=== PATIENT | male | born 1935 | race Caucasian/White ===

== ENCOUNTER → 2016-05-07 | Outpatient (CLI) | payer OTHER ==
[~2016-05-07] MED LIST: ADVAIR 250-501 EACH INH; ADVAIR HFA115 MCG/21 INH; ALLOPURINOL 10100 M1 PO; ASPIRIN EC81 M1; BENICAR20 MG PO; COREG CR20 MG PO; COZAAR 25 MG TA25 M2 PO; COZAAR 50 MG TA50 M2 PO; DEMADEX20 MG PO; ECOTRIN325 MG PO; FLONASE 0.05%50 MCG NASAL; FUROSEMIDE 40 M40 MG PO; IRON325 PO; KLOR-CON 1010 MEQ PO; PACERONE 200 M200 M1 PO; PERSER VISION; PRAVACHOL40 MG PO; PRESERVISION T1 EACH PO; PROAIR HFA8.5 GM INH; PROBIOTIC1 EAC1 PO; PROTONIX40 M1 PO; SINGULAIR 10 MG10 M1 PO; SLOW-MAG64 MG PO; VERAMYST10 GM INH; VITAMIN D1000 UNI1 PO
== END ==
LOC: RAD 02:43
DX: R94.5 Abnormal results of liver function studies (principal)

== ENCOUNTER → 2016-11-30 | Outpatient (CLI) | payer OTHER ==
[2016-11-30 12:29] LABS: HEMATOCRIT 38.7 % (42.0-52.0); HEMOGLOBIN 12.6 gm/dL (14.0-18.0); MCH 32.2 pg (26.0-34.0); MCHC 32.6 g/dL (28.0-37.0); MCV 98.7 fL (80.0-100.0); RBC 3.92 mil/uL (4.50-6.00); RDW 15.7 % (10.5-14.5); WBC 9.1 thou/uL (4.0-11.0)
[2016-11-30 12:31] LABS: CREATININE 2.1 mg/dL (0.7-1.3); POTASSIUM 4.8 mmol/L (3.5-5.1)
[2016-11-30 12:37] LABS: TOTAL BILIRUBIN 0.7 mg/dL (<0.1-1.0); TOTAL PROTEIN 6.8 g/dL (6.4-8.2)
[2016-12-01 02:08] LABS: GLYCOHEMOGLOBIN (HGB A1C) 5.3 % (4.8-5.6)
== END ==
LOC: RAD 11:55 → LABMALL 11:55
PROVIDERS: Neuromusculoskeletal Medicine & OMM
DX: E11.9 Type 2 diabetes mellitus without complications (principal); R06.02 Shortness of breath; R05 Cough

== ENCOUNTER → 2017-01-12 | Outpatient (CLI) | payer OTHER | LOC: CAT 10:36 | DX: H92.02 Otalgia, left ear (principal); R51 Headache ==

== ENCOUNTER → 2017-02-03 | Outpatient (CLI) | payer OTHER ==
[~2017-02-03] MED LIST changes: +COZAAR 25 MG TA25 MG PO; +FIBER THERAPY500 MG PO; +LIVALO2 MG PO; +NORCO 5-325 TA1 EACH PO
--- NOTE | ~2017-02-03 | P ---
[facility] [place] [address] PROCEDURE REPORT Name: HOUSTON HERNANDEZ Room #: REG [facility].#: [id number] Admission: 02/03/17 Attend Phys: Lam Morris MD Discharge: Date of : 33 Report #: [id number] THIS REPORT FOR: //name// CC: Jj Teixeira PROCEDURE PERFORMED: ICD generator exchange, CPT code 13090. HISTORY OF PRESENT ILLNESS: The patient is an 81-year-old with history of ischemic cardiomyopathy and VT, status post Medtronic ICD implantation, whose device is CHRIS and he is here for generator exchange. ANESTHESIA: The patient underwent MAC anesthesia with no anesthesia related complications. PROCEDURE: The patient underwent informed consent where we discussed the details of the procedure including the risks, which include, but not limited to bleeding, infection, vascular damage and need for possible lead revision. He understood these risks and is willing to proceed. As such, he was brought to the EP laboratory in a fasting and sedated state and received IV antibiotics prior to initiation of the procedure. I then injected lidocaine below the level of the prior incision and an incision was made. The chronic pocket was opened. The device was disconnected and the new device was connected to the leads. Tug tests were performed and the device was interrogated and found to be functioning normally. The patient does have a lateral pocket, which has been chronic and the device sits near his axilla. I did suture the header down to hopefully prevent lateral migration. The pocket was irrigated with vancomycin and then the pocket was closed in 3 layers using 2-0 for the deep layer, 3-0 for the middle layer and 4-0 for the subcuticular layer with surgical glue placed in the outer skin layer. The patient awoke neurologically and hemodynamically intact. No complications and no significant bleeding. The explanted device was Medtronic device, model #R505NXK, serial #[id number]. The newly implanted device was a [employer] model #[id number], serial #[id number]. The atrial lead was a Medtronic model #4568, serial #[id number]. This lead demonstrated P-wave 1 millivolt, pacing impedance of 350 ohms and the pacing threshold of 1.25 volts at 0.5 milliseconds. The RV lead was a Medtronic model #6944, serial #[id number]. This lead demonstrated R-wave greater than 12 millivolts, pacing impedance of 450 ohms, and pacing threshold 1.25 volts at 0.5 milliseconds. The device is programmed to the DDDR 60-120 mode with a VT1 zone set at 120, VT2 zone set at 150 and VF zone of 150. The VT1 zone is a monitor zone. The VT 2 zone had ATP times 8 followed by max output shocks. The VF zone had ATP while charging followed by max output shocks. CONCLUSIONS: [facility] [address] [place] [address] PROCEDURE REPORT Name: HERNANDEZHOUSTON TANVIR Room #: REG [facility]#: [id number] Admission: 02/03/17 Attend Phys: Lam Morris MD Discharge: Date of : 33 Report #: [id number] 1. Successful ICD generator exchange. 2. Satisfactory atrial and right ventricular pacing and sensing thresholds. By: 0942 1105 Lam Morris MD /nt
[2017-02-03 07:33] LABS: ABSOLUTE NEUTROPHILS 5.2 thou/uL (1.4-8.2); BASOPHILS 0.9 % (0.0-2.0); EOSINOPHILS 5.3 % (0.0-3.0); HEMATOCRIT 38.6 % (42.0-52.0); HEMOGLOBIN 12.5 gm/dL (14.0-18.0); MCH 32.2 pg (26.0-34.0); MCHC 32.5 g/dL (28.0-37.0); MCV 99.1 fL (80.0-100.0); MONOCYTES 6.4 % (1.0-8.0); PLATELET COUNT 159 thou/uL (150-400); POLYS 65.4 % (36.0-66.0); RBC 3.89 mil/uL (4.50-6.00); RDW 15.7 % (10.5-14.5); WBC 7.9 thou/uL (4.0-11.0)
[2017-02-03 07:34] LABS: MANUAL DIFF NO
[2017-02-03 07:39] LABS: CREATININE 2.4 mg/dL (0.7-1.3); POTASSIUM 4.2 mmol/L (3.5-5.1)
[2017-02-03 07:45] LABS: ALBUMIN 2.8 g/dL (3.4-5.0); TOTAL BILIRUBIN 0.7 mg/dL (<0.1-1.0); TOTAL PROTEIN 6.4 g/dL (6.4-8.2)
[2017-02-03 07:55] LABS: APTT 26.1 Seconds (24.5-32.8); INR 1.1; PROTIME 11.2 Seconds (9.3-11.4)
== END | disposition home or self-care (01) ==
LOC: CATH 06:32
PROVIDERS: Internal Medicine Cardiovascular Disease
DX: I25.5 Ischemic cardiomyopathy (principal); R00.0 Tachycardia, unspecified; M19.90 Unspecified osteoarthritis, unspecified site; E11.9 Type 2 diabetes mellitus without complications; I73.9 Peripheral vascular disease, unspecified; E78.5 Hyperlipidemia, unspecified; I42.9 Cardiomyopathy, unspecified; I21.3 ST elevation (STEMI) myocardial infarction of unspecified site; E66.9 Obesity, unspecified; Z87.891 Personal history of nicotine dependence; Z95.1 Presence of aortocoronary bypass graft
CPT/HCPCS: 62110; 62900; 70005

== ENCOUNTER 2017-03-24 17:08 | Inpatient (IN) | payer OTHER ==
[~2017-03-24] VITALS: Ht 175.3 cm; Wt 96.6 kg
--- NOTE | ~2017-03-24 | HC ---
[facility] [address] [place] [address] CONSULTATION Name: HOUSTON HERNANDEZ Room #: 214-P [facility] IN M.R.#: [id number] Admission: 03/24/17 Attend Phys: Jj Jacobson MD, Discharge: 03/26/17 Date of : 33 Report #: [id number] THIS REPORT FOR: //name// CC: Jj Teixeira DATE OF SERVICE: 03/25/2017 HISTORY OF PRESENT ILLNESS: The patient is an 81-year-old white male who was admitted with acute on chronic congestive heart failure, noted to have moderate pleural effusion and moderate to severe mitral regurgitation. He has lateral hypokinesis. He also has nasia-xi-oukcecs renal insufficiency with worsening creatinine. He has ischemic cardiomyopathy. He is being treated with IV Lasix. Cardiology is closely involved. He has medical complexity with generalized debilitation. We are seeing him in rehabilitation medicine consultation. PAST MEDICAL HISTORY: Includes mitral valve repair, hypertension, V-tach. He had a prior implantable cardiac defibrillator. He has history of hypercholesterolemia and hypertension. MEDICATIONS: Please see the full medication listing. SOCIAL HISTORY: House, this is a care home situation where he lives with his . There are no steps. He premorbidly used a cane or often a walker. His drives. There is an involved daughter and niece. REVIEW OF SYSTEMS: Did not offer any current complaints of chest pain, shortness of breath or abdominal discomfort. No focal extremity pain complaints. PHYSICAL EXAMINATION: GENERAL: An 81-year-old white male in no obvious distress. The patient is alert. He is oriented, somewhat verbose, but very pleasant, cooperative. VITAL SIGNS: Last recorded temperature 97.7, pulse 61, respirations 19, blood pressure 93/51. HEENT: Benign. NEUROLOGIC: Facies are symmetric. Functional range of motion of both upper extremities with strength grade 4 to 4-/5. DTRs are trace to 1. Lower extremities, no focal calf swelling, functional range of motion with strength grade 4-/5. DTRs are trace to 1. Tone appeared to be intact. ASSESSMENT: An 81-year-old white male with the following problem list: 1. Medical complex with generalized debilitation. 2. Acute on chronic congestive heart failure. 3. Ischemic cardiomyopathy. 4. Acute renal insufficiency superimposed on chronic kidney disease. [address] [address] CONSULTATION Name: HOUSTON HERNANDEZ Room #: 214-P [facility] IN M.R.#: [id number] Admission: 03/24/17 Attend Phys: Jj Jacobson MD, Discharge: 03/26/17 Date of : 33 Report #: [id number] 5. Paroxysmal atrial fibrillation. 6. Prior ICD placement. 7. Coronary artery disease with prior coronary artery bypass grafting. 8. History of prior mitral valve repair. 9. History of ventricular tachycardia. 10. Hypertension. 11. Hypercholesterolemia. PLAN: Therapy evaluations are underway. We are considering the patient for a short acute in-hospital inpatient rehabilitation stay. Discussion was held with the patient's and niece. We will be glad to follow along regarding rehab therapy needs, as his evaluations are completed. Thank you for asking us to assist in this patient's care. <ELECTRONICALLY SIGNED> By: Saurav Chatman MD 03/29/17 1219 1308 1421 Saurav Chatman MD /[facility]
--- NOTE | ~2017-03-24 | HC ---
[facility] [place] [address] CONSULTATION Name: HOUSTON HERNANDEZ Room #: 214-P ADM IN M.R.#: [id number] Admission: 03/24/17 Attend Phys: Jj Jacobson MD, Discharge: Date of : 33 Report #: [id number] THIS REPORT FOR: //name// CC: Jj Teixeira DATE OF SERVICE: 03/25/2017 REASON FOR CONSULTATION: Chronic kidney disease. HISTORY OF PRESENT ILLNESS: An 81-year-old gentleman with longstanding ischemic cardiomyopathy and chronic kidney disease, baseline creatinine running in the mid 2 range in our office, presents with worsening debilitation, weakness, difficulty getting around, difficulty with his walking. PAST MEDICAL HISTORY: Coronary artery bypass in 2001, longstanding decreased left ventricular ejection fraction, previous ejection fractions as low as 30-35%, apparently up to 40-45% more recently. He is chronic diuretic dependent, is also on an ARB, previous ventricular tachycardia with implantable cardioverter-defibrillator placement. Also with prior hip replacements, cholecystectomy and a previous Staph aureus infection. SOCIAL HISTORY: He is a longtime heavy smoker, but recently quit a couple of years ago. FAMILY HISTORY: No renal disease. REVIEW OF SYSTEMS: GENERAL: He is weak and tired. EYES: His vision is okay. ENT: Hearing okay. Denies mouth sores. ENDOCRINE: Positive for the diabetes. RESPIRATORY: Not really short winded per se, just gets tired with exertion. CARDIAC: No chest pain. He has some swelling of his legs. GASTROINTESTINAL: Appetite fair. No bloody stool. GENITOURINARY: A little bit of a weak stream. NEUROLOGIC: Denies seizure, syncope or stroke, just generalized weakness. PSYCHIATRIC: Seems a little depressed. PHYSICAL EXAMINATION: VITAL SIGNS: This is an elderly, weak, thin appearing gentleman, in no acute distress. SKIN: Unremarkable. SKELETAL: Well-developed, well-nourished, a little bit obese. HEENT: Extraocular movements are full. Vision intact. No scleral icterus. Hearing intact. Mucous membranes moist. Tongue, buccal mucosa benign. [facility] [address] [place] [address] CONSULTATION Name: HOUSTON HERNANDEZ Room #: 214-P ADM IN M.R.#: [id number] Admission: 03/24/17 Attend Phys: Jj Jacobson MD, Discharge: Date of : 33 Report #: [id number] NECK: Supple, no carotid bruits. CHEST: Shows diminished breath sounds at the bases. HEART: Distant, but regular. ABDOMEN: Soft and nontender. EXTREMITIES: Show trace ankle edema. LABORATORY DATA: Urinalysis not done. Hemoglobin 13. Sodium 143, potassium 4, chloride 111, bicarbonate 24, creatinine 3, BUN 57. HOME MEDICATIONS: Allopurinol 200 mg daily, amiodarone 300 mg daily, aspirin 325 mg daily, carvedilol 3.125 mg b.i.d., vitamin D, iron, Flonase, Advair, losartan 12.5 mg daily, magnesium, Singulair, Protonix 40 mg daily, Livalo 2 mg daily, potassium 10 mEq b.i.d., torsemide 50 mg daily. ASSESSMENT: 1. Acute on chronic kidney disease. He appears to have chronic kidney disease. He has longstanding diabetes. I will check proteinuria and paraprotein studies for completeness, renal sonography for completeness as well. Certainly some of his renal insufficiency is due to poor cardiac performance, although his ejection fraction is not as bad as I would have thought. We can edna with his medicines, but probably will not be able to do too much for this gentleman. 2. Congestive heart failure. 3. Diabetes mellitus. 4. Chronic obstructive pulmonary disease, history of heavy smoking. 5. Previous coronary artery bypass. 6. History of ventricular tachycardia with automatic implantable cardioverter-defibrillator. <ELECTRONICALLY SIGNED> By: Jj Andre MD 03/26/17 1044 0834 1336 Jj Andre MD /nt
[2017-03-24 18:31] LABS: HEMATOCRIT 39.5 % (42.0-52.0); MCH 33.1 pg (26.0-34.0); MCHC 32.9 g/dL (28.0-37.0); MCV 100.5 fL (80.0-100.0); RBC 3.93 mil/uL (4.50-6.00); RDW 16.2 % (10.5-14.5)
[2017-03-24 18:43] LABS: INR 1.1; PROTIME 11.4 Seconds (9.3-11.4)
[2017-03-24 18:48] LABS: ALBUMIN 2.5 g/dL (3.4-5.0); CALCIUM 8.8 mg/dL (8.5-10.1); CREATININE 3.1 mg/dL (0.7-1.3); POTASSIUM 4.7 mmol/L (3.5-5.1); TOTAL BILIRUBIN 0.7 mg/dL (<0.1-1.0)
[2017-03-24 18:56] VITALS: BP 131/70
[2017-03-24 23:51] VITALS: BP 122/64
[2017-03-25 03:54] LABS: CALCIUM 8.2 mg/dL (8.5-10.1); MAGNESIUM 2.3 mg/dL (1.8-2.4)
[2017-03-25 04:00] VITALS: BP 96/55
[2017-03-25 07:47] VITALS: BP 109/52
[2017-03-25 08:43] LABS: ALBUMIN 2.1 g/dL (3.4-5.0); CALCIUM 8.2 mg/dL (8.5-10.1); POTASSIUM 4.1 mmol/L (3.5-5.1)
[2017-03-25 11:08] VITALS: BP 93/51
[2017-03-25 15:20] VITALS: BP 108/58
[2017-03-25 17:35] LABS: URINE BILIRUBIN NEGATIVE (Negative); URINE BLOOD NEGATIVE (Negative); URINE COLOR YELLOW; URINE GLUCOSE-RANDOM* NEGATIVE (Negative); URINE KETONES NEGATIVE (Negative); URINE NITRITE NEGATIVE (Negative); URINE PROTEIN (DIPSTICK) NEGATIVE (Negative); URINE UROBILINOGEN 0.2 E.U./dl (0.2-1.0)
[2017-03-25 17:40] LABS: PROT/CREAT RATIO 0.1; URINE CREATININE-RANDOM* 75.2 mg/dL; URINE PROTEIN-RANDOM* 6.7 mg/dL (<11.9)
[2017-03-25 19:19] VITALS: BP 137/47
[2017-03-26 04:07] VITALS: BP 112/64
[2017-03-26 04:15] LABS: ALBUMIN 1.9 g/dL (3.4-5.0); CALCIUM 8.1 mg/dL (8.5-10.1); CREATININE 2.8 mg/dL (0.7-1.3); PHOSPHORUS 3.7 mg/dL (2.5-4.9); POTASSIUM 3.8 mmol/L (3.5-5.1)
[2017-03-26 07:39] VITALS: BP 115/58
[2017-03-26] MEDS ORDERED: ATORVASTATIN CA40 MG PO (09:33)
[2017-03-26] MEDS ORDERED: ALDACTONE25 MG PO (09:34)
[2017-03-26 11:31] VITALS: BP 104/59
[2017-03-26 12:09] LABS: KAPPA FREE LIGHT CHAINS 107.3 mg/L (3.3-19.4); KAPPA/LAMBDA RATIO 1.25 (0.26-1.65); LAMBDA FREE LIGHT CHAINS 85.6 mg/L (5.7-26.3)
[2017-03-30 08:11] LABS: A/G RATIO 1.1 (0.7-1.7); ALBUMIN 2.5 g/dL (2.9-4.4); ALPHA 1 0.3 g/dL (0.0-0.4); ALPHA 2 0.6 g/dL (0.4-1.0); BETA 0.7 g/dL (0.7-1.3); GAMMA 0.6 g/dL (0.4-1.8); M-SPIKE Not Observed g/dL (Not Observed)
== END 2017-03-26 13:11 | DRG 291 ==
LOC: 2N 17:08
PROVIDERS: Internal Medicine Cardiovascular Disease; Internal Medicine Nephrology; Nurse Practitioner Adult Health; Nurse Practitioner Gerontology
DX: I13.0 Hypertensive heart and chronic kidney disease with heart failure and stage 1 through stage 4 chronic kidney disease, or unspecified chronic kidney disease (principal); I50.23 Acute on chronic systolic (congestive) heart failure; N17.9 Acute kidney failure, unspecified; Z96.649 Presence of unspecified artificial hip joint; N18.9 Chronic kidney disease, unspecified; E11.22 Type 2 diabetes mellitus with diabetic chronic kidney disease; J44.9 Chronic obstructive pulmonary disease, unspecified; E78.00 Pure hypercholesterolemia, unspecified; I25.5 Ischemic cardiomyopathy; I48.0 Paroxysmal atrial fibrillation; I25.10 Atherosclerotic heart disease of native coronary artery without angina pectoris; E11.51 Type 2 diabetes mellitus with diabetic peripheral angiopathy without gangrene; Z90.49 Acquired absence of other specified parts of digestive tract; Z87.891 Personal history of nicotine dependence; Z95.1 Presence of aortocoronary bypass graft; Z95.810 Presence of automatic (implantable) cardiac defibrillator; Z28.21 Immunization not carried out because of patient refusal
CPT/HCPCS: 10797

== ENCOUNTER 2017-03-26 10:22 | Inpatient (IN) | payer OTHER ==
[~2017-03-26] VITALS: Ht 175.3 cm; Wt 92.0 kg
--- NOTE | ~2017-03-26 | EKG ---
[place] [address] [facility] [place] [address] ELECTROCARDIOGRAM REPORT Name: HOUSTON HERNANDEZ Room #: 516-1 ADM IN M.R.#: [id number] Admission: 03/26/17 Attend Phys: Saurav Chatman MD Discharge: Date of : 33 Report #: [id number] THIS REPORT FOR: //name// [facility] Test Date: 2017-04-01 Test Time: 06:33:49 Pat Name: HOUSTON HERNANDEZ Department: Room: 6 Gender: M Jd Edwards: May POWELL : 1935 Requested By: Jj Jacobson Order Number: [id number] MD: Real Abbasi Measurements Intervals [place] Rate: 60 P: AK: 182 QRS: -64 QRSD: 185 T: 70 QT: 481 QTc: 481 Interpretive Statements Atrial-paced rhythm Nonspecific IVCD with LAD Compared to ECG 11/20/2015 19:43:20 No significant changes Electronically Signed On 04-01-2017 8:24:41 SWINGING CUT OFF SAW OPERATOR by Real Abbasi [email or web address] <ELECTRONICALLY SIGNED> By: Real Abbasi MD, [facility] 04/01/17 0824 2 2 Real Abbasi MD, [facility] /EPI
--- NOTE | ~2017-03-26 | PLAN ---
[facility] [place] [address] [place] [address] REHAB UNIT PLAN OF CARE Name: HOUSTON HERNANDEZ Room #: 516-1 ADM IN M.R.#: [id number] Admission: 03/26/17 Attend Phys: Saurav Chatman MD Discharge: Date of : 33 Report #: [id number] THIS REPORT FOR: //name// CC: Saurav Teixeira DATE OF SERVICE: 03/29/2017 The patient is seen back today in followup. He is in no distress. Last recorded temperature 36.4, pulse 60, respirations 20, blood pressure 107/58. No focal calf swelling. He is working in therapies with transfers are contact guard with gait contact guard 200 feet with a front-wheeled walker. In occupational therapy, lower body dressing is contact guard. ASSESSMENT: 1. Medical complexity with generalized debilitation. 2. Acute on chronic congestive heart failure. 3. Ischemic cardiomyopathy. 4. Acute renal insufficiency superimposed on chronic kidney disease. 5. Paroxysmal atrial fibrillation. 6. Prior implantable cardioverter defibrillator placement. 7. Coronary artery disease with prior coronary artery bypass grafting. 8. History of prior mitral valve repair. 9. History of ventricular tachycardia. 10. Hypertension. 11. Hypercholesterolemia. PLAN: The overall plan of care is based on the preadmission screen, post-admission physician evaluation and information garnered from therapy assessments. 1. Estimated length of stay is probably at least the next 5 days or so, only we will need to see how he progresses. 2. Medical prognosis is reasonably good. 3. Anticipated interventions includes the interdisciplinary acute inpatient rehabilitation program with goal of maximizing the patient's functional independence, so that hopefully can return back to his prior living situation. PT and OT will be working with him along with rehab nursing assisting regarding medication management, skin care prophylaxis, bowel and bladder issues and nursing education. We will have the independent beauty consultant physicians continue to follow. 4. Anticipated functional outcomes would be for the patient to become modified independent with transfers, mobility and ADLs, so that he can return back to the home setting. 5. Discharge destination would be back to the home setting where he lives with his in a care home situation. 6. Expected therapy by discipline includes PT and OT 1-1/2 hours per day, [place] [address] REHAB UNIT PLAN OF CARE Name: DAVIDHOUSTON TANVIR Room #: 516-1 [facility]#: [id number] Admission: 03/26/17 Attend Phys: Saurav Chatman MD Discharge: Date of : 33 Report #: [id number] five days a week throughout the duration of the acute inpatient rehabilitation stay. <ELECTRONICALLY SIGNED> By: Saurav Chatman MD 03/29/17 1219 0819 1002 Saurav Chatman MD /PMT
--- NOTE | ~2017-03-26 | H ---
[facility] [address] [place] [address] HISTORY AND PHYSICAL Name: HOUSTON HERNANDEZ Room #: 516-1 ADM IN M.R.#: [id number] Admission: 03/26/17 Attend Phys: Saurav Chatman MD Discharge: Date of : 33 Report #: [id number] THIS REPORT FOR: //name// CC: Saurav Teixeira DATE OF SERVICE: 03/26/2017 HISTORY OF PRESENT ILLNESS: The patient is an 81-year-old white male originally admitted to [facility] with acute on chronic congestive heart failure, was noted to have moderate pleural effusion and moderate to severe mitral regurgitation. He has a lateral hypokinesis. He also has nevll-vc-vfqgurb renal insufficiency with worsening creatinine. He has ischemic cardiomyopathy. He was treated with IV Lasix. Cardiology has been closely involved. He has medical complexity with generalized debilitation with a significant decline in his overall functional abilities. He has not been admitted for acute in-hospital inpatient rehabilitation. PAST MEDICAL HISTORY: Includes mitral valve repair, hypertension, V-tach. He has had a prior implantable cardiac defibrillator. He has a history of hypercholesterolemia and hypertension. MEDICATIONS: Please see the full medication listing. Each of these was individually reconciled and includes vitamins herbals, and supplements. SOCIAL HISTORY: Lives in a house in a retirement situation. He lives with his . There are no steps. He premorbidly utilized a cane or often a walker. His drives. His uses a cane as well. There is an involved daughter and niece. REVIEW OF SYSTEMS: No current complaints of chest pain, shortness of breath, abdominal discomfort. No focal extremity pain complaints. PHYSICAL EXAMINATION: GENERAL: An 81-year-old white male in no obvious distress. He is alert, oriented, and pleasant. HEENT: Appeared to be benign. Cranial nerves are grossly intact. Facies are symmetric. CHEST: Sounded clear to auscultation. CARDIOVASCULAR: Regular rate and rhythm. ABDOMEN: Bowel sounds positive, nontender. GENITOURINARY AND RECTAL: Deferred. EXTREMITIES: He has functional range of motion of both upper extremities with strength grade 4-/5. DTRs are trace to 1. Lower extremities, no focal calf swelling, functional range of motion with strength grade 4-/5. DTRs are trace to 1. Prior to his admission, he has been needing min assist with basic sit to [address] [address] HISTORY AND PHYSICAL Name: HOUSTON HERNANDEZ Room #: 516-1 [facility] IN [facility].#: [id number] Admission: 03/26/17 Attend Phys: Saurav Chatman MD Discharge: Date of : 33 Report #: [id number] stand with min assist with short distance ambulation. ASSESSMENT: An 81-year-old white male with the following problem list: 1. Medical complexity with generalized debilitation. 2. Acute on chronic congestive heart failure. 3. Ischemic cardiomyopathy. 4. Acute renal insufficiency superimposed on chronic kidney disease. 5. Paroxysmal atrial fibrillation. 6. Prior ICD placement. 7. Coronary artery disease with prior coronary artery bypass grafting. 8. History of prior mitral valve repair. 9. History of ventricular tachycardia. 10. Hypertension. 11. Hypercholesterolemia. PLAN: The patient is admitted for acute in-hospital inpatient rehabilitation. From a postadmission physician evaluation perspective, there are no relevant changes since the preadmission screening. Please see the above review of prior and current medical and functional conditions and comorbidities. Please see the patient's previous and current functional status. As far as risk of complications, there are multiple medical comorbidities as noted above. Initial plan of care involves the interdisciplinary acute inpatient rehabilitation program with the goal of maximizing his functional independence, so that he can hopefully return back to his prior living situation. Measurable functional goals would be for him to become modified independent with transfers, mobility and ADLs either at a cane or a walker level. He needs improvement in his endurance. His prognosis is reasonably good with estimated length of stay probably 7-10 days, pending progress. Potential barriers would include his multiple medical comorbidities and decreased functional status. The patient meets diagnostic criteria for an acute in-hospital inpatient rehabilitation stay. He meets medical necessity criteria with the above noted multiple medical comorbidities. He does have the tolerance for an acute rehabilitation level and has appropriate discharge goals back to the home setting. The patient will be seen by Cardiology as well as Nephrology with his significant cardiac comorbidities while he is on the acute inpatient rehab hgaan. He meets medical necessity criteria and Cardiology specifically is requesting that he have the in-hospital inpatient rehabilitation, so that he can be closely monitored while he is working on improving his overall strength and endurance. [address] [address] HISTORY AND PHYSICAL Name: DAVIDHOUSTON TANVIR Room #: 516-1 ADM IN M.R.#: [id number] Admission: 03/26/17 Attend Phys: Saurav Chatman MD Discharge: Date of : 33 Report #: [id number] He does have the tolerance for an acute rehab stay and has appropriate discharge goals back to the home setting. He does meet diagnostic criteria. <ELECTRONICALLY SIGNED> By: Saurav Chatman MD 03/29/17 1219 1600 1633 Saurav Chatman MD /[facility]
--- NOTE | ~2017-03-26 | HC ---
[facility] [place] [address] CONSULTATION Name: HOUSTON HERNANDEZ Room #: 516-1 [facility] IN M.R.#: [id number] Admission: 03/26/17 Attend Phys: Saurav Chatman MD Discharge: 04/02/17 Date of : 31 Report #: [id number] THIS REPORT FOR: //name// CC: Saurav Teixeira DATE OF SERVICE: 03/28/2017 NEUROBEHAVIORAL STATUS EXAM ATTENDING PHYSICIAN: Saurav Chatman M.D. BLOW MOLD TECHNICIAN: Pola Webster, PhD CLINICAL PRESENTATION: The patient is an 81-year-old male admitted to the [facility] for a comprehensive inpatient rehabilitation program to improve functional mobility and activities of daily living and self-care secondary to impairment from medical complexity and generalized debilitation. He reports having been at his home when he experienced shortness of breath and weight gain that indicated difficulty with fluid retention. His endurance was poor and he was quite sedentary during the day. His diagnoses on admission includes acute on chronic congestive heart failure, ischemic cardiomyopathy, acute renal insufficiency superimposed on chronic kidney disease, paroxysmal atrial fibrillation, prior ICD placement, coronary artery disease with prior coronary artery bypass grafting, history of prior mitral valve repair, and a history of ventricular tachycardia. Hypertension and hypercholesterolemia are also reported. A complete description of his medical condition and history can be found in his medical record. Neuropsychological consultation was requested to provide assistance in the assessment of cognitive and emotional status and to provide recommendations and services. Prior to this most recent admission, he was living with his in their home. The patient is a high school graduate with 2 years of college. 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 He has 4 children. There is no reported history of treatment for mental disorder or alcohol/drug abuse. His indicates that his anxiety level appears higher than he reports. TECHNIQUES UTILIZED: Clinical interview, review of medical records, staff consultation and behavioral observation, mini mental status exam 2 standard version, category fluency and clock drawing and family interview -- . EXAMINATION FINDINGS: The patient was alert and cooperative with the [facility] [address] [place] [address] CONSULTATION Name: DAVIDHOUSTON JOE Room #: 516-1 [facility] IN ..#: [id number] Admission: 03/26/17 Attend Phys: Saurav Chatman MD Discharge: 04/02/17 Date of : 31 Report #: [id number] assessment. He accurately described events surrounding his admission. There is no evidence of aphasia. His thoughts are logical and goal oriented. There is no evidence of thought disorder. He does not report having any hallucinations or suicidal ideation. The patient denies symptoms of cognitive disorder and his does not report observation of any cognitive deficits. His performance on the MMSE 2 brief version is within normal limits with a raw score of 14-16. He was 3/3 for initial registration, 5/5 for orientation to time and place. He was 1/3 for immediate recall of 3 items after a brief time delay and distraction. The patient was 5/5 for serial sevens, 2/2 for naming, 1/1 for repetition, 3/3 for comprehension. He could read and follow a single command and write a sentence. The patient had difficulty in drawing a simple geometric design. His performance in category fluency was generally in the normal range with a raw score of 14, which is a T score of 49, which is in the average range. In general, the patient's cognitive functioning appears to be improved. While he does not report subjective symptoms of anxiety, his indicates that he has had periods in which he can be very despondent and anxious. 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 RECOMMENDATIONS: Most areas of cognitive function are within normal limits. However, the patient is showing some subtle deficits with immediate and incidental memory. A followup neuropsychological evaluation upon stabilization of his medical condition to clarify the severity of cognitive deficits. During inpatient rehabilitation he will benefit from written instructions, repetition and reassurance. Encouragement to use relaxation techniques will also assist in reducing anxiety. Thank you very much for allowing me to provide the consultation on this patient. <ELECTRONICALLY SIGNED> By: Pola Webster, PhD 04/03/17 [id number] Pola Webster, PhD /nt
[~2017-03-26 10:22] MED LIST changes: +ALDACTONE25 MG PO; +ATORVASTATIN CA40 MG PO
[2017-03-26 13:20] VITALS: BP 112/61
[2017-03-26 20:41] VITALS: BP 115/60
[2017-03-27 04:03] LABS: ALBUMIN 1.9 g/dL (3.4-5.0); CREATININE 2.8 mg/dL (0.7-1.3); PHOSPHORUS 3.5 mg/dL (2.5-4.9); POTASSIUM 3.9 mmol/L (3.5-5.1)
[2017-03-27 08:24] VITALS: BP 94/54
[2017-03-27 20:12] VITALS: BP 95/48
[2017-03-28 08:15] VITALS: BP 103/46
[2017-03-28 20:05] VITALS: BP 107/58
[2017-03-29 06:45] LABS: ALBUMIN 2.1 g/dL (3.4-5.0); CALCIUM 8.1 mg/dL (8.5-10.1); CREATININE 3.1 mg/dL (0.7-1.3); PHOSPHORUS 3.7 mg/dL (2.5-4.9); POTASSIUM 4.4 mmol/L (3.5-5.1)
[2017-03-29 08:50] VITALS: BP 100/56
[2017-03-30 08:24] VITALS: BP 95/42
[2017-03-30 20:05] VITALS: BP 102/48
[2017-03-31 04:17] LABS: ALBUMIN 1.9 g/dL (3.4-5.0); CREATININE 3.5 mg/dL (0.7-1.3); PHOSPHORUS 3.6 mg/dL (2.5-4.9); POTASSIUM 4.6 mmol/L (3.5-5.1)
[2017-03-31 07:25] VITALS: BP 131/56
[2017-03-31 08:58] LABS: BASOPHILS 0.9 % (0.0-2.0); EOSINOPHILS 4.7 % (0.0-3.0); HEMOGLOBIN 12.5 gm/dL (14.0-18.0); LYMPHOCYTES 13.3 % (24.0-44.0); MCH 32.9 pg (26.0-34.0); MCV 99.6 fL (80.0-100.0); MONOCYTES 7.1 % (1.0-8.0); PLATELET COUNT 115 thou/uL (150-400); RBC 3.81 mil/uL (4.50-6.00); RDW 16.5 % (10.5-14.5); WBC 9.5 thou/uL (4.0-11.0)
[2017-03-31 09:13] LABS: MANUAL DIFF NO
[2017-03-31 20:06] VITALS: BP 102/48
[2017-04-01 20:15] VITALS: BP 95/56
[2017-04-02 06:27] LABS: CALCIUM 8.4 mg/dL (8.5-10.1); CREATININE 3.7 mg/dL (0.7-1.3); PHOSPHORUS 3.9 mg/dL (2.5-4.9); POTASSIUM 4.6 mmol/L (3.5-5.1)
[2017-04-02 08:15] VITALS: BP 95/51
[2017-04-02 12:32] VITALS: BP 95/51
[2017-04-02 15:56] VITALS: BP 95/51
== END 2017-04-02 14:45 | disposition home health service (06) | DRG 947 ==
LOC: ENTRNSPT 04-02 14:09 → EDTRNSPTSTS 04-02 14:11 → CMPTRNSPT 04-02 14:29
PROVIDERS: Internal Medicine Nephrology; Physical Medicine & Rehabilitation
DX: R53.81 Other malaise (principal); I50.23 Acute on chronic systolic (congestive) heart failure; N17.9 Acute kidney failure, unspecified; I13.0 Hypertensive heart and chronic kidney disease with heart failure and stage 1 through stage 4 chronic kidney disease, or unspecified chronic kidney disease; G31.84 Mild cognitive impairment of uncertain or unknown etiology; F43.22 Adjustment disorder with anxiety; I34.0 Nonrheumatic mitral (valve) insufficiency; N18.9 Chronic kidney disease, unspecified; I25.5 Ischemic cardiomyopathy; E78.00 Pure hypercholesterolemia, unspecified; I48.0 Paroxysmal atrial fibrillation; I25.10 Atherosclerotic heart disease of native coronary artery without angina pectoris; I73.9 Peripheral vascular disease, unspecified; Z95.810 Presence of automatic (implantable) cardiac defibrillator; Z95.1 Presence of aortocoronary bypass graft; Z88.2 Allergy status to sulfonamides
CPT/HCPCS: 10112